=== PATIENT | female | born 1945 | race Hispanic/Latino ===

== ENCOUNTER 2018-02-08 07:56 | Day surgery (SDC) | payer MEDICARE ==
[2018-01-25 11:34] VITALS: BMI 19.7
[2018-02-08 08:49] VITALS: O2SAT 99
[2018-02-08] MEDS ORDERED: Propofol 10 mg/ml Inj (20 ML) ONE (09:09)
[2018-02-08] MEDS ORDERED: Sodium Chloride 0.9% 1,000 ML IV SCH (09:45)
[2018-02-08 10:20] VITALS: BP 115/68; PULSE 62; RESP 18; TEMP 97.9
== END 2018-02-08 10:45 | disposition home or self-care (01) ==
LOC: ENDO 07:56
PROVIDERS: ATTEND Specialist
DX: K31.7 Polyp of stomach and duodenum (principal); K21.9 Gastro-esophageal reflux disease without esophagitis; K44.9 Diaphragmatic hernia without obstruction or gangrene; J44.9 Chronic obstructive pulmonary disease, unspecified; I10 Essential (primary) hypertension; E03.9 Hypothyroidism, unspecified
CPT/HCPCS: 43251; 88305; 88342; J2704; J7030; J7040

== ENCOUNTER 2018-10-11 14:38 | Outpatient (CLI) | payer MEDICARE | END 2018-10-11 14:39 | disposition home or self-care (01) | LOC: RAD 14:38 ==